=== PATIENT | female | born 1950 | race Caucasian/White ===

== ENCOUNTER 2019-09-25 12:49 | Emergency (ER) | payer MEDICARE, BC ==
[~2019-09-25] VITALS: Ht 162.6 cm; Wt 44.6 kg
[2019-09-25 13:36] VITALS: BP 135/58
[2019-09-25] MEDS ORDERED: ONDANSETRON HCL/PF - ER 4 MG/2 ML VIAL IV ONE (15:00)
[2019-09-25] MEDS ORDERED: MORPHINE SULFATE INJ 2 MG/ML DISP.SYRIN IV ONE (15:00)
--- NOTE | 2019-09-25 15:15 | NUR ---
BIB C/O CONSTIPATION FOR 1 WEEK PER PT NOTED BLOOD AND WATERY. PT AAXOX4, VSS. DENIES CP, SOB, DIZZINESS, N/V @ THIS TIME. PT SEEN & EVAL'D BY DR. SALAZAR. WILL CONT TO MONITOR. @ BS. UNSUCCESSFUL STARTING IV & WILL ASK ANOTHER RN TO START AN IV ACCESS. PT AWARE & ACKNOWLEDGED IT.
[2019-09-25 15:46] LABS: ALBUMIN 3.3 g/dL (3.4-5.0); BILIRUBIN,TOTAL 0.3 mg/dL (0.2-1.0); CALCIUM, SERUM 8.5 mg/dL (8.5-10.1); CREATININE 0.9 mg/dL (0.6-1.3); POTASSIUM 5.3 mmol/L (3.5-5.1)
[2019-09-25] MEDS ORDERED: IV NS 0.9% 250 ML IV ONE (15:57)
[2019-09-25] MEDS ORDERED: IOHEXOL-300 100 ML VIAL IV ONE (15:57)
[2019-09-25] MEDS ORDERED: CT SWABBABLE VALVE TRANS SET 1 EA INFUS.SET MC ONE (15:57)
--- NOTE | 2019-09-25 16:00 | NUR ---
DR. SALAZAR @ BS TO RE-EVALUATE PT.
--- NOTE | 2019-09-25 16:11 | NUR ---
PT LEFT WITHOUT SIGNING AMA FORM, DR. SALAZAR AWARE.
== END 2019-09-25 16:14 | disposition left against medical advice (07) ==
LOC: ER 12:51
DX: R10.11 Right upper quadrant pain (principal); R10.31 Right lower quadrant pain; R10.13 Epigastric pain; K59.00 Constipation, unspecified; F41.9 Anxiety disorder, unspecified; Z98.890 Other specified postprocedural states
CPT/HCPCS: 36415; 76705; 80048; 80076; 83690; 99284; J7050; Q9967